=== PATIENT | male | born 1950 | race Two or more races ===

== ENCOUNTER 2022-08-18 07:27 | Outpatient (REF) | payer MEDICARE, SELFPAY ==
--- NOTE | ~2022-08-18 | XR_ITS ---
EXAMINATION: XR CERVICAL SPINE CLINICAL INFORMATION: M47.812 - Spondylosis without myelopathy or radiculopathy, cervical region COMPARISON: None available. TECHNIQUE: 6 views of the cervical spine were obtained, including oblique views. FINDINGS: Rightward tilting cervical spine on coronal imaging. Normal cervical lordosis. The vertebral bodies are normal in height. No vertebral compression, spondylolisthesis, destructive process, or prevertebral soft tissue swelling. There are mild degenerative changes between the anterior arch C1 and the dens. Multilevel degenerative disc changes are present with mild disc narrowing at all levels with variable vertebral spurring including probable posterior spurring at C4-C5. There is variable facet degeneration greatest lower cervical spine. The oblique views suggests bilateral foraminal narrowing C2-C3, C3-C4, and C4-C5 and mild left foraminal spurring C6-C7. XR/XR cervical spine 4V IMPRESSION: -Multilevel degenerative disc and degenerative facet changes. -Probable bilateral foraminal narrowing C2-C3, C3-C4, and C4-C5. Left spurring C6-C7.
== END 2022-08-18 07:28 | disposition home or self-care (01) ==
LOC: HO.XRAY 07:27
PROVIDERS: PCP Internal Medicine; Visit Provider Student in an Organized Health Care Education/Training Program
DX: M47.812 Spondylosis without myelopathy or radiculopathy, cervical region (principal); M19.041 Primary osteoarthritis, right hand; M19.042 Primary osteoarthritis, left hand; Z79.899 Other long term (current) drug therapy
CPT/HCPCS: 72050; 99202

== ENCOUNTER 2022-09-20 14:34 | Outpatient (REF) | payer MEDICARE, SELFPAY ==
--- NOTE | ~2022-09-20 | XR_ITS ---
EXAMINATION: XR HANDS, BILATERAL CLINICAL INFORMATION: Bilateral hand pain. COMPARISON: None. TECHNIQUE: 4 views of each hand. FINDINGS: Right Hand: There is no evidence of acute fracture or dislocation of the right hand. There is severe degenerative change of the 1st carpometacarpal joint with prominent spurring and joint space narrowing. There is significant degenerative change with loss of joint space and irregular articular surface involving the 2nd through 5th distal interphalangeal joints, most severe about the 4th and 5th distal interphalangeal joints. There is significant degenerative change of the 2nd proximal interphalangeal joint with narrowing of joint space and spurring with sclerosis. There is some associated soft tissue edema. No significant erosive changes are appreciated. Left Hand: There is severe degenerative change of the 1st carpometacarpal joint with loss of joint space, sclerosis, and prominent spurring. There is significant degenerative change of the 2nd through 5th distal interphalangeal joints with loss of joint space and articular irregularity with spurring and subchondral cyst formation. There is sparing of the metacarpophalangeal joints with mild narrowing of the 2nd and 5th proximal interphalangeal joints. No acute fracture or dislocation. There appears to be a bone island about the distal radius. XR/XR hand LT min 3V IMPRESSION: Diffuse findings of osteoarthritis with degenerative changes as described above, predominantly involving the 1st carpometacarpal joints and distal interphalangeal joints.
--- NOTE | ~2022-09-20 | XR_ITS ---
EXAMINATION: XR HANDS, BILATERAL CLINICAL INFORMATION: Bilateral hand pain. COMPARISON: None. TECHNIQUE: 4 views of each hand. FINDINGS: Right Hand: There is no evidence of acute fracture or dislocation of the right hand. There is severe degenerative change of the 1st carpometacarpal joint with prominent spurring and joint space narrowing. There is significant degenerative change with loss of joint space and irregular articular surface involving the 2nd through 5th distal interphalangeal joints, most severe about the 4th and 5th distal interphalangeal joints. There is significant degenerative change of the 2nd proximal interphalangeal joint with narrowing of joint space and spurring with sclerosis. There is some associated soft tissue edema. No significant erosive changes are appreciated. Left Hand: There is severe degenerative change of the 1st carpometacarpal joint with loss of joint space, sclerosis, and prominent spurring. There is significant degenerative change of the 2nd through 5th distal interphalangeal joints with loss of joint space and articular irregularity with spurring and subchondral cyst formation. There is sparing of the metacarpophalangeal joints with mild narrowing of the 2nd and 5th proximal interphalangeal joints. No acute fracture or dislocation. There appears to be a bone island about the distal radius. XR/XR hand RT min 3V IMPRESSION: Diffuse findings of osteoarthritis with degenerative changes as described above, predominantly involving the 1st carpometacarpal joints and distal interphalangeal joints.
== END 2022-09-20 14:35 | disposition home or self-care (01) ==
LOC: HO.HOSX 14:34
PROVIDERS: PCP Internal Medicine; Visit Provider Orthopaedic Surgery
DX: M19.041 Primary osteoarthritis, right hand (principal); M19.042 Primary osteoarthritis, left hand; M18.12 Unilateral primary osteoarthritis of first carpometacarpal joint, left hand
CPT/HCPCS: 73130; 99202

== ENCOUNTER 2023-07-05 12:28 | Outpatient (AMB) | payer MEDICARE, SELFPAY ==
[2023-07-05 13:12] VITALS: BMI 25.1
--- NOTE | 2023-07-05 13:12 | A.OFFVIS_ITS ---
Intake Vital Signs 07/05/23 13:12 Height 6 ft Weight 185 lb BMI 25.1 Intake Visit Reasons: Newprob-Left thumb pain/tenderness Intake Note: Pierre 72 yr old right hand dominant male presents today for a new problem visit for his left thumb pain. States his left phone is clicking, has stiffness and is limited ROM that started in late March. Denies any injury. At times he has numbness and tingling in thumb only. Allergies No Known Allergies Allergy (Verified 07/05/23 13:15) HPI Newprob-Left thumb pain/tenderness HPI Details Pierre is a 72 year old right hand dominant man who returns to discuss his left thumb pain. 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 He says this began in 03/2023. He also complains of numbness which is felt only in his thumb. He has known left basal joint OA, and bilateral hand OA. He says he plays the [employer] frequently at home, and this is painful for him with his thumb locked down. He says he is planning a trip to [place] sometime this summer to play his Saxophone. 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 he cannot hyperextend at the IP joint, as we see in his right thumb. Tender over the thumb A1 danay He has some generalized arthritic changes to the PIP and DIP joints of multiple digits He has Heberdines nodes on several DIP joints. 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 Left trigger thumb I educated him about this condition I discussed operative and non-operative treatment options The patient would like to proceed with surgery The risks and benefits of operative treatment were discussed with the patient and the patient wishes to proceed with surgery. These risks include, but are not limited to risk of damage to blood vessels, nerves, tendons, infection, recurrence, incomplete relief of preoperative symptoms, persistent pain, possible need for further surgery and the risks associated with regional blocks and anesthesia. The plan is to take the patient to the operating room sometime in the next few weeks for the following procedures: 1. Left trigger thumb release, under local All of the preoperative paperwork including the consent was reviewed today. All the patient's questions were answered. The patient understands that they will be contacted by our curator herbarium soon to schedule this procedure. He is planning to travel to [place] in the summertime to play music. He would like to have this done sometime in July if possible. He would like to be put on a cancellation list. He denies Diabetes, blood thinners, asthma, heart, lung, kidney issues He is on Nitroglycerin PO prn. 2. Left Basal joint osteoarthritis 3. Right index finger PIP and D IP to joint osteoarthritis Generalized osteoarthritic changes in multiple joints I educated him about this condition I discussed treatment options, including injections or surgery He does not want any injections at this time and I do not recommend surgery at this time Overall he is doing pretty well He declined a velcro wrist brace today I discussed activity modification, he should limit or avoid any pinching or gripping activities, or activities that cause him pain He should work on ROM exercises at home Scribed for Eboni Vigil MD by Donell Soto, medical insurance claims specialist, on 07/05/23 at 1:35 PM, EST. 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
== END 2023-07-05 13:48 | disposition home or self-care (01) ==
PROVIDERS: PCP Internal Medicine; Visit Provider Orthopaedic Surgery
DX: M65.312 Trigger thumb, left thumb (principal); M19.041 Primary osteoarthritis, right hand; M18.12 Unilateral primary osteoarthritis of first carpometacarpal joint, left hand
CPT/HCPCS: 99214

== ENCOUNTER → 2023-07-05 12:28 | Outpatient (BNVA) | payer MEDICARE, SELFPAY | PROVIDERS: PCP Internal Medicine; Visit Provider Orthopaedic Surgery | DX: M19.041 Primary osteoarthritis, right hand (principal); M19.042 Primary osteoarthritis, left hand; M18.12 Unilateral primary osteoarthritis of first carpometacarpal joint, left hand; M65.312 Trigger thumb, left thumb | CPT/HCPCS: 99212 ==

== ENCOUNTER 2023-08-17 09:31 | Day surgery (SDC) | payer MEDICARE, OTHER, SELFPAY ==
--- NOTE | 2023-08-17 08:21 | W.PM.OPN ---
Operative Note Operative Note Date of Service: 08/17/23 Narrative: Operative Note Preop diagnosis: 1. Left thumb Trigger finger Postop diagnosis: 1. Left thumb Trigger finger Procedure: 1. Left thumb A1 danay release Surgeon: Eboni Vigil MD Anesthesia: local block using 1% lidocaine with epinephrine Findings: No locking or catching after A1 danay release EBL: Less than 5 mL Tourniquet time: None Specimens: None Complications: None Disposition: Brought to recovery room in stable condition Plan: Follow-up for 10-14 days for wound check and suture removal Indications: The patient is 73 years old, with a left trigger thumb that has been unresponsive to nonoperative management. The risks and benefits of operative treatment including but not limited to risk of damage to blood vessels, nerves, tendons, infection, persistent pain, persistent symptoms, recurrence or possible need for additional surgery were discussed with the patient and the patient wishes to proceed with surgery. Procedure: Once consent was obtained a local block was performed in the preop area using a combination of 1% lidocaine with epinephrine. The patient was then brought back to the operating suite and placed on the operative table in supine position. The left upper extremity was prepped and draped in a standard surgical fashion. Once assured that we had a good block, a 1.5 cm oblique incision was made centered over the A1 danay of the left thumb . The incision was made through the skin to the subcutaneous tissues using a #15 blade. Careful dissection was made down to the level of the A1 danay using tenotomy scissors, with care being taken to protect the nearby neurovascular structures. A longitudinal incision was made in the A1 danay 1st using a #15 blade, then using tenotomy scissors under direct visualization. The A1 danay was noted to be thickened. Following our A1 danay release, we no longer saw any locking or catching of the digit with flexion and extension. Once satisfied with our A1 danay release the wound was copiously irrigated with normal saline and hemostasis was obtained with a brief period of local pressure. The skin edges were reapproximated with some 5.0 nylon suture material and a sterile dressing was applied. The patient appears to have tolerated the procedure well and with no complications. All digits were well vascularized at the conclusion of the case.
[2023-08-17 09:35] VITALS: BP 168/94; PULSE 78; RESP 20; TEMP 36.6; O2SAT 97; BMI 25.6
--- NOTE | 2023-08-17 09:45 | PC.NURSE ---
timeout orior to block pt tolerated well verbalized understanding of careplan
--- NOTE | 2023-08-17 10:03 | MHC.SHP ---
Pre-Procedural Eval Section A - 24 Hr Update-Section A only Date of Service: 08/17/23 The patient is an INPATIENT: No Changes since office visit: No Cold of Flu in the past 2 weeks, No New Medical Problems, No Changes in Medication and No Patient answered all questions The patient has been examined within 24 hours of the surgical procedure. The History & Physical has been completed within 30 days and I have reviewed it.: Yes Section B - Complete if H&P > 30 days Chief Complaint: Trigger thumb, left thumb Allergies: Allergies Allergy/AdvReac Type Severity Reaction Status Date / Time No Known Allergies Allergy Verified 07/05/23 13:15 Plan I have reviewed the history and physical and performed a pertinent physical examination on my patient. No changes have occurred unless specified. Time Spent With Patient Time: Total time managing care of this patient today ____ minutes.
[2023-08-17 10:49] VITALS: BP 171/72; PULSE 54; RESP 16; O2SAT 97
== END 2023-08-17 10:55 | disposition home or self-care (01) ==
PROVIDERS: PCP Internal Medicine; Visit Provider Orthopaedic Surgery
PROC: (CPT 26055; principal; 2023-08-17 13:30)
DX: M65.312 Trigger thumb, left thumb (principal); M18.12 Unilateral primary osteoarthritis of first carpometacarpal joint, left hand; R20.0 Anesthesia of skin; M19.042 Primary osteoarthritis, left hand; M19.041 Primary osteoarthritis, right hand; I10 Essential (primary) hypertension; E78.2 Mixed hyperlipidemia; C61 Malignant neoplasm of prostate; N40.0 Benign prostatic hyperplasia without lower urinary tract symptoms; I25.10 Atherosclerotic heart disease of native coronary artery without angina pectoris; C80.1 Malignant (primary) neoplasm, unspecified; Z79.899 Other long term (current) drug therapy
CPT/HCPCS: 26055; J0171

== ENCOUNTER → 2023-08-17 09:31 | Outpatient (BNV) | payer MEDICARE, OTHER, SELFPAY | PROVIDERS: PCP Internal Medicine; Visit Provider Orthopaedic Surgery | DX: M65.312 Trigger thumb, left thumb (principal) | CPT/HCPCS: 26055 ==

== ENCOUNTER 2023-08-25 10:53 | Outpatient (AMB) | payer MEDICARE, OTHER, SELFPAY ==
--- NOTE | 2023-08-25 11:30 | A.OFFVIS_ITS ---
Vital Signs 08/25/23 11:34 Height 6 ft Weight 189 lb BMI 25.6 Intake Visit Reasons: PO-Lt Thumb Trigger Release 08/17/23 wound check Intake Note: Pierre a 73 year old male who presents today for a wound check s/p left thumb trigger release, DOI 08/17/23. Patient reports that when he has tenderness, swelling and redness. Allergies No Known Allergies Allergy (Verified 08/25/23 11:33) HPI HPI PO-Lt Thumb Trigger Release 08/17/23 wound check: Details: 73-year-old male who returns to the office today for post-op wound check of left thumb trigger release, 08/17/23. He continues to have tenderness, swelling and redness in his thumb. He is doing well otherwise and has no other concerns today. 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 He has trace amount swelling along incision site with very minimal redness but no evidence of infection, increased pain, purulence, or abscess formation. Assessment & Plan Assessment & Plan (1) Trigger thumb, left thumb: Code(s): M65.312 - Trigger thumb, left thumb Category: Medical Plan Reassurance was given that there is no evidence of infection at this time. I seem that he might be overusing his hand playing his saxophone. He will avoid any type lifting, grasping or holding activities till his next follow-up appointment. If symptoms persist or worsens, patient will contact the office, otherwise he will see us back next Monday for his post-op follow-appointment. Patient Instructions: Scribed for Rosina Escobar PA-C, by Reinaldo Abhang, medical and health services manager, on 08/25/2023 at 11:15 AM Rosina JOE PA-C, have personally reviewed and agree with the information entered by the scribe. Coding Level of Care Code Global (90525) Diagnoses Trigger thumb, left thumb M65.312
[2023-08-25 11:34] VITALS: BMI 25.6
== END 2023-08-25 12:08 | disposition home or self-care (01) ==
PROVIDERS: PCP Internal Medicine; Visit Provider Physician Assistant
DX: M65.312 Trigger thumb, left thumb (principal)
CPT/HCPCS: 99024

== ENCOUNTER → 2023-08-25 10:53 | Outpatient (BNVA) | payer MEDICARE, OTHER, SELFPAY | PROVIDERS: PCP Internal Medicine; Visit Provider Physician Assistant | DX: Z47.89 Encounter for other orthopedic aftercare (principal) | CPT/HCPCS: 99212 ==

== ENCOUNTER 2023-08-28 10:13 | Outpatient (AMB) | payer MEDICARE, OTHER, SELFPAY ==
--- NOTE | 2023-08-28 10:19 | MHC.OFFVIS ---
Vital Signs 08/28/23 10:27 Height 6 ft Weight 189 lb BMI 25.6 Intake Visit Reasons: PO-Lt Thumb Trigger Release 08/17/23-wound check? Intake Note: Pierre a 73 year old male who presents today for a wound check s/p left thumb trigger release, DOI 08/17/23. Patient reports wound worsened during the weekend. Patient was prescribed Bactrim DS which he's started. Reports its worsened despite of starting antibiotics. Reports redness, tenderness, pus pockets . Denies fevers or chills. 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 He reports his pain worsened during the weekend. He currently states he has pain, redness, tenderness and ?pus pockets? in his thumb. He has been taking Bactrim DS without benefits. He has no other concerns today. 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 He has trace amount swelling along incision site with very minimal redness but no evidence of infection, increased pain, purulence, or abscess formation. Assessment & Plan Assessment & Plan (1) Trigger thumb, left thumb: Code(s): M65.312 - Trigger thumb, left thumb Category: Medical Plan Sutures were removed today. The area was cleaned with chloraprep and betadine and 2 small pus pockets were expressed which he tolerated well. The area was cleaned again and betadine was applied. Per with Dr. Vigil he should apply daily dressing changes and cleanse the area with saline and half peroxide. He does have a routine post-op appointment tomorrow with Dr. Vigil for reevaluation which he would like to attend as he is going out of the country on Monday. He will continue taking Bactrim. I did offer him to take Augmentin however he would like to continue with Bactrim. He will see us back as discussed. Patient Instructions: Scribed for Rosina Escobar PA-C, by Reinaldo Green medical concierge, on 08/28/2023 at 10:30 AM EST. I, Rosina Escobar PA-C, have personally reviewed and agree with the information entered by the scribe. Coding Level of Care Code Global (73197) Diagnoses Trigger thumb, left thumb M65.312
[2023-08-28 10:27] VITALS: BMI 25.6
== END 2023-08-28 11:52 | disposition home or self-care (01) ==
PROVIDERS: PCP Internal Medicine; Visit Provider Physician Assistant
DX: M65.312 Trigger thumb, left thumb (principal)
CPT/HCPCS: 99024

== ENCOUNTER → 2023-08-28 10:13 | Outpatient (BNVA) | payer MEDICARE, OTHER, SELFPAY | PROVIDERS: PCP Internal Medicine; Visit Provider Physician Assistant | DX: Z47.89 Encounter for other orthopedic aftercare (principal); Z98.890 Other specified postprocedural states; Z87.39 Personal history of other diseases of the musculoskeletal system and connective tissue | CPT/HCPCS: 99212 ==

== ENCOUNTER 2023-08-29 10:58 | Outpatient (AMB) | payer MEDICARE, SELFPAY ==
--- NOTE | 2023-08-29 11:02 | MHC.OFFVIS ---
Vital Signs 08/29/23 11:03 Height 6 ft Weight 189 lb BMI 25.6 Intake Visit Reasons: PO-Lt Thumb Trigger Release 08/17/23 Intake Note: Pierre 73 yr old male presents today for his PO visit for his left Thumb Trigger Release 08/17/[address] Vigil. States locking of finger has gone away and is only having mild tenderness. Seen yesterday where he stated he had puss drainage. Reports he is better today. Sutures removed yesterday in office. Allergies No Known Allergies Allergy (Verified 08/29/23 11:08) HPI HPI PO-Lt Thumb Trigger Release 08/17/23: Details: Pierre is a 73 year old right hand dominant man who presents S/P left trigger thumb release, DOS 08/17/23. He has been seen by LUKE Almaguer for a post-op suture abscess on 08/23/23 & 08/28/23. He has been taking Bactrim PO and performing daily dressing changes. He says he is doing better today, since his sutures were removed yesterday. His tenderness has significantly improved, and he denies any new drainage since his sutures were removed yesterday In regards to his locking, he says this has resolved. He is planning on traveling to [place] on 08/30/23. 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 The little bit of redness seen yesterday appears to have largely resolved, he has not particularly tender today. His wound is clean & dry. He can make a fist and extend all his digits No locking o catching Sensation is intact Cap refill is brisk Psych Appearance: grossly normal Affect: normal affect Attitude: cooperative Assessment & Plan Assessment & Plan (1) Trigger thumb, left thumb: Code(s): M65.312 - Trigger thumb, left thumb Category: Medical (2) Postoperative abscess involving suture: Code(s): T81.41XA - Infection following a procedure, superficial incisional surgical site, initial encounter Category: Medical (3) Osteoarthritis of hands, bilateral: Code(s): M19.041 - Primary osteoarthritis, right hand; M19.042 - Primary osteoarthritis, left hand Category: Medical Qualifiers: Osteoarthritis type: primary Qualified Code(s): M19.041 - Primary osteoarthritis, right hand; M19.042 - Primary osteoarthritis, left hand (4) 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 Left trigger thumb S/P release DOS: 08/17/23 The patient appears to be doing well post-operatively, and the suture abscess appears to have resolved significantly since his sutures were removed yesterday. I educated him about the post-operative course I explained the signs and symptoms of infection He will continue to take Bactrim as instructed, and will bring these with him when he travels to [place] I discussed activity modifications, he is to lift nothing heavier than a cellphone for the next two weeks He will perform gentle ROM exercises at home He should avoid any underwater activities for the next 5 days, but can wash his hands with soap under running water He should gently massage about the incision site to reduce the risk of hypersensitivity I wished him well on his trip to [place]. He will follow up prn 2. Left Basal joint osteoarthritis 3. Right index finger PIP and D IP to joint osteoarthritis Generalized osteoarthritic changes in multiple joints He does not want any injections at this time and I do not recommend surgery at this time Overall he is doing pretty well I discussed activity modification, he should limit or avoid any pinching or gripping activities, or activities that cause him pain He should work on ROM exercises at home Scribed for Eboni Vigil MD by Donell Soto, medical office professional instructor, on 08/29/23 at 11:15 AM, EST. 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
[2023-08-29 11:03] VITALS: BMI 25.6
== END 2023-08-29 11:28 | disposition home or self-care (01) ==
PROVIDERS: PCP Internal Medicine; Visit Provider Orthopaedic Surgery
DX: M65.312 Trigger thumb, left thumb (principal); T81.41XA Infection following a procedure, superficial incisional surgical site, initial encounter; M19.041 Primary osteoarthritis, right hand; M19.042 Primary osteoarthritis, left hand; M18.12 Unilateral primary osteoarthritis of first carpometacarpal joint, left hand
CPT/HCPCS: 99024

== ENCOUNTER → 2023-08-29 10:58 | Outpatient (BNVA) | payer MEDICARE, OTHER, SELFPAY | PROVIDERS: PCP Internal Medicine; Visit Provider Orthopaedic Surgery | DX: Z47.89 Encounter for other orthopedic aftercare (principal); M65.312 Trigger thumb, left thumb; M19.041 Primary osteoarthritis, right hand; M19.042 Primary osteoarthritis, left hand; M18.12 Unilateral primary osteoarthritis of first carpometacarpal joint, left hand; T81.41XA Infection following a procedure, superficial incisional surgical site, initial encounter | CPT/HCPCS: 99212 ==